=== PATIENT | male | born 1950 | race Hispanic/Latino ===

== ENCOUNTER 2024-11-30 15:41 | Inpatient (IN) | payer MEDICARE ==
[~2024-11-30] VITALS: Ht 170.2 cm; Wt 79.1 kg
--- NOTE | 2024-11-30 16:09 | ERN ---
ED Note History of Present Illness Stated Complaint: DIARRHEA Chief Complaint: Diarrhea Time Seen by MD: 15:48 Dictation: PATIENT IS A 74-YEAR-OLD MALE COMING IN VIA EMS WITH COMPLAINTS OF GENERALIZED BODY WEAKNESS WITH DIARRHEA ONSET WAS YESTERDAY. HE DENIES FEVER CHILLS NO CHEST PAIN NO BACK PAIN. NO CHANGE IN URINATION. STATES HIS LAST INTAKE WAS YESTERDAY HE HAS HAD NO FOOD OR DRINK SINCE YESTERDAY. DENIES ANY RECENT ANTIBIOTIC USE Allergies: Coded Allergies: No Known Drug Allergies (Unverified Allergy, Unknown, 11/30/24) Past Medical History Past Medical History: Anxiety, CVA, Depression, Hypertension, Other Additional Past Medical Hx: BPH, Surgical History: None RN Note Reviewed/Agreed w/PFSH: Yes Review of System Dictation CONSTITUTIONAL: NEGATIVE EXCEPT FOR HPI G BW HEAD/FACE: NEGATIVE EXCEPT FOR HPI EENT: NEGATIVE EXCEPT FOR HPI RESPIRATORY: NEGATIVE EXCEPT FOR HPI GASTROINTESTINAL/ABDOMINAL: NEGATIVE EXCEPT FOR HPI DIARRHEA, DENIES PAIN GENITOURINARY: NEGATIVE EXCEPT FOR HPI MUSCULOSKELETAL: NEGATIVE EXCEPT FOR HPI INTEGUMENTARY: NEGATIVE EXCEPT FOR HPI NEUROLOGICAL/PSYCH: NEGATIVE EXCEPT FOR HPI HEMATOLOGIC/LYMPHATIC: NEGATIVE EXCEPT FOR HPI ALL SYSTEMS NEGATIVE, EXCEPT NOTED ABOVE. 13 POINT REVIEW OF SYSTEMS ASSESSED AND ALL NEGATIVE EXCEPT FOR ABOVE. Initial Vital Sign VS Vital Signs Date Time Temp Pulse Resp B/P (MAP) Pulse Ox O2 Delivery O2 Flow Rate FiO2 11/30/24 15:42 68 16 147/82 95 Room Air 0 11/30/24 16:01 97.9 21 Physical Exam Dictation VITAL SIGNS REVIEWED GENERAL APPEARANCE: ALERT, ORIENTED X 3, PATIENT APPEARS VERY FRAIL AND DEBILITATED. NO COMPLAINTS OF PAIN AT THIS TIME. HEAD AND FACE: NON-TRAUMATIC. EYES: PERRL, PINK CONJUNCTIVAS, EYELID NO TRAUMA, ANTERIOR CHAMBER WITH ARCUS SENILIS. EARS: PINNAS INTACT AND NO SIGNS OF TRAUMA OR ERYTHEMA EAR CANALS CLEAR AND NO DISCHARGE TM NO ERYTHEMA NOSE: NO DISCHARGE, NO BLEEDING. OROPHARYNX: MOUTH NORMAL, TONGUE PINK, PHARYNX CLEAR,NO ERYTHEMA, TONSILS NO EXUDATES, NO ABSCESSES NOTED, MUCOUS MEMBRANE MOIST NECK: SUPPLE, NON-TENDER, NO THYROMEGALY, NO MASSES, NO JVD, NO BRUITS BREAST:DEFERRED CHEST:NO TENDERNESS, NO CREPITUS, NO PARADOXICAL MOVEMENT, NO RETRACTIONS LUNGS:CLEAR, WELL-VENTILATED, SYMMETRIC, NO RALES, NO WHEEZING, NO RHONCHI, NO STRIDOR, GOOD BREATH SOUNDS BILATERALLY HEART: REGULAR RATE, REGULAR RHYTHM, NO MURMUR, NO GALLOPS VASCULAR: NO PERIPHERAL EDEMA, ABDOMEN: SOFT, POSITIVE BOWEL SOUNDS, NONDISTENDED, NO GUARDING, NONTENDER, NO REBOUND, NO MASSES NO HEPATOMEGALY, NO SPLENOMEGALY, NO TOLEDO'S SIGN, NO HERNIAS. NO FOCAL PAIN ON EXAM RECTAL: DEFERRED GENITAL: DEFERRED NEUROLOGICAL: NORMAL SPEECH, MOTOR FUNCTION INTACT, SENSORY FUNCTION INTACT 4/+5 STRENGTH ALL EXTREMITIES MUSCULOSKELETAL: NECK NONTENDER, FULL RANGE OF MOTION, BACK NONTENDER, FULL RANGE OF MOTION, EXTREMITIES: NONTENDER, FULL RANGE OF MOTION SKIN: COLOR PINK, DRY, NO TURGOR, NO RASH, NO LACERATIONS, NO ABRASIONS, NO CONTUSIONS. LYMPHATIC: DEFERRED Results (Laboratory/Radiology) Laboratory/Radiology Laboratory Tests Test 11/30/24 16:22 11/30/24 17:56 White Blood Count 7.6 K/uL (4.8-10.8) Red Blood Count 4.66 MIL/uL (4.50-6.20) Hemoglobin 14.5 g/dL (14.0-18.0) Hematocrit 43.6 % (42-54) Mean Corpuscular Volume 93.6 fL (79-99) Mean Corpuscular Hemoglobin 31.1 pg (27.0-33.0) Mean Corpuscular Hemoglobin Concent 33.3 g/dL (32.0-36.0) Red Cell Distribution Width 13.6 % (11.0-15.5) Platelet Count 222 K/uL (130-400) Mean Platelet Volume 11.5 fL (7.5-10.5) H Immature Granulocyte % (Auto) 0.3 % (0-1) Neutrophils (%) (Auto) 70.7 % (40.0-77.0) Lymphocytes (%) (Auto) 18.8 % (21.0-51.0) L Monocytes (%) (Auto) 5.8 % (3.0-13.0) Eosinophils (%) (Auto) 3.7 % (0.0-8.0) Basophils (%) (Auto) 0.7 % (0.0-5.0) Neutrophils # (Auto) 5.4 K/uL (1.8-7.7) Lymphocytes # (Auto) 1.4 K/uL (1.0-4.8) Monocytes # (Auto) 0.4 K/uL (0.1-1.0) Eosinophils # (Auto) 0.28 K/uL (0.00-0.70) Basophils # (Auto) 0.05 K/uL (0.00-0.20) Absolute Immature Granulocyte (auto 0.02 K/uL (0-1) Nucleated Red Blood Cells 0.0 % (0.0-0.19) Sodium Level 140 mmol/L (136-145) Potassium Level 4.5 mmol/L (3.5-5.1) Chloride Level 106 mmol/L (101-111) Carbon Dioxide Level 28 mmol/L (21-32) Blood Urea Nitrogen 24 mg/dL (7-18) H Creatinine 1.4 mg/dL (0.5-1.3) H Glomerular Filtration Rate Calc 52 mL/min (>90) Random Glucose 98 mg/dL (70-105) Total Calcium 8.6 mg/dL (8.5-10.1) Troponin I High Sensitivity 6 ng/L (4-75) Lipase 31 U/L (16-77) Urine Color LIGHT-YELLOW (YELLOW) Urine Appearance CLEAR (CLEAR) Urine pH 5.5 (5.0-8.0) Urine Specific [place] 1.023 (1.001-1.031) Urine Protein NEGATIVE mg/dL (NEGATIVE) Urine Glucose (UA) NEGATIVE mg/dL (NEGATIVE) Urine Ketones NEGATIVE mg/dL (NEGATIVE) Urine Occult Blood +- (TRACE) (NEGATIVE) H Urine Nitrate NEGATIVE (NEGATIVE) Urine Bilirubin NEGATIVE mg/dL (NEGATIVE) Urine Urobilinogen 0.2 mg/dL (0.2-1.0) Urine Leukocyte Esterase NEGATIVE [place]/uL Urine RBC 2-5 /HPF (0-1) H Urine WBC 0-1 /HPF (0-1) Urine Squamous Epithelial Cells RARE /HPF (0-2) Urine Bacteria None /HPF (None Seen) Labs Reviewed?: Yes EKG Comment: EKG SINUS RHYTHM/HEART RATE 65/AXIS NORMAL/0 CHANGES IN INFERIOR ANTERIOR LEADS ED Course ED Course Orders Procedure Category Date Status Time Cbc With Differential LAB 11/30/24 Complete 16:04 Troponin I High LAB 11/30/24 Complete Sensitivity 16:04 Urinalysis Profile LAB 11/30/24 Complete 16:04 12 Lead Ekg Tracing- EKG 11/30/24 Logged Technical 16:04 0.9%Nacl 1000ml (Ns PHA 11/30/24 In Process 1000ml) 16:30 Stool Culture MELITON 11/30/24 In Process 16:04 Lipase LAB 11/30/24 Complete 16:04 Basic Metabolic Panel LAB 11/30/24 Complete 16:04 Edm Admit Bridge Order ADM 11/30/24 Verified 18:57 Current Medications Medications (Trade) Dose Ordered Sig/[place] Route PRN Reason Start Time Stop Time Status Last Admin Dose Admin Sodium Chloride 1,000 ml @ 0 mls/hr ONCE IV 11/30/24 16:30 11/30/24 20:30 11/30/24 16:10 Vital Signs Date Time Temp Pulse Resp B/P (MAP) Pulse Ox O2 Delivery O2 Flow Rate FiO2 11/30/24 18:09 98.4 68 16 131/60 97 Room Air* 0 21 11/30/24 17:28 97.9 88 13 163/83 96 Room Air* 0 21 11/30/24 16:01 97.9 65 18 126/72 97 Room Air* 0 11/30/24 15:42 68 16 147/82 95 Room Air 0 1850/WITH PATIENT AT LENGTH ABOUT CLINICAL FINDINGS AND LABS. HE STATES HE DOES NOT FEEL LIKE HE COULD GO HOME AND BE SAFE HE WOULD LIKE TO STAY AND BE REHYDRATED AND ADDRESS THE JC. I AGREED I WOULD ADMIT HIM. HE STATES HE DOES FEEL BETTER AT THIS TIME.1900/ SPOKE WITH TOMA WILSON [facility] H[facility]PITAL[facility] REVIEWED EKG LABS INTERVENTIONS FOR JC AND DEHYDRATION HE IS ALSO AWARE PENDING A COLLECTION OF STOOL FOR CULTURE Medical Decision Making MDM MDM: DIFFERENTIAL DIAGNOSIS: C DIFF/INFECTIOUS DIARRHEA/ELECTROLYTE IMB ALANCE/DEHYDRATION/ACS/AMI/JC RATIONALE: TESTS CONSIDERED AND ORDERED SECONDARY TO SHARED DECISION MAKING INCLUDE: LABS, ECG PREVIOUS OUTSIDE RECORDS REVIEWED: OLD ER VISITS. RISK OF COMPLICATION AND/OR MORBIDITY OR MORTALITY OF PATIENT MANAGEMENT: MODERATE MEDICATIONS-PER MEDICATION RECONCILIATION NEED FOR HOSPITALIZATION: PATIENT DOES MEET CRITERIA FOR HOSPITALIZATION. FLUIDS NEED FOR EMERGENCY MAJOR/MINOR SURGERY: NO THERE ARE NO SOCIAL CONCERNS WITH THIS PATIENT. PRESCRIPTION DRUG MANAGEMENT PRESCRIPTIONS WILL INCLUDE SYMPTOMATIC CARE PATIENT'S PRIOR EXTERNAL MEDICAL RECORDS FROM OTHER ER VISITS WERE REVIEWED BY ME INDICATED. PRIOR TESTING AND RESULTS FROM PREVIOUS VISITS WERE REVIEWED. PRIOR TESTS WERE TAKEN INTO ACCOUNT WITH MEDICAL DECISION MAKING AND RESOURCE UTILIZATION, INDEPENDENT HISTORIAN/HISTORIANS WERE USED TO OBTAIN COMPLETE MEDICAL HISTORY. I INDEPENDENTLY INTERPRETED THE TEST THAT WERE PERFORMED, RESULTS WERE REVIEWED BY ME AND CONSIDERED FINDINGS ON RADIOLOGY IF ORDERED. MEDICAL MANAGEMENT AND EXAMINATION INTERPRETATION DISCUSSIONS WERE HAD BY ME WITH OTHER QUALIFIED HEALTHCARE PROFESSIONALS INDICATED FOR THE PATIENT'S CARE. DX & DISP Disposition: Inpatient Decision to Admit Time: 18:53 Departure Impression: Primary Impression: Diarrhea Additional Impressions: Acute kidney injury, Dehydration Condition: Stable Referrals: SELF,REFERRAL (PCP) Time of Disposition: 18:53 I have reviewed the case, and I agree with, Diagnosis and Plan KAYDEN JOHNSTON [employer] Nov 30, 2024 16:09
[2024-11-30] MEDS: 0.9%NACL 1000ML 1,000 ML IV SCH (16:10)
[2024-11-30 16:40] LABS: IMMATURE GRANULOCYTE ABSOLUTE 0.02 K/uL (0-1); NUCLEATED RED BLOOD CELLS 0.0 % (0.0-0.19); PLATELET COUNT (AUTO) 222 K/uL (130-400); RED BLOOD CELL COUNT(AUTO) 4.66 MIL/uL (4.50-6.20); RED CELL DISTRIBUTION WIDTH 13.6 % (11.0-15.5); WHITE BLOOD COUNT (AUTO) 7.6 K/uL (4.8-10.8)
[2024-11-30 16:50] LABS: CREATININE 1.4 mg/dL (0.5-1.3); GLOMERULAR FILTR. RATE CALC 52.0 mL/min (>90); GLUCOSE,RANDOM 98.0 mg/dL (70-105); SODIUM SERUM 140.0 mmol/L (136-145); UREA NITROGEN, BLOOD 24.0 mg/dL (7-18)
--- NOTE | 2024-11-30 18:05 | NUR ---
CALL DAUGHTER IWONA ITZEL (BANNER) *[phone]
[2024-11-30 18:14] LABS: APPEARANCE,URINE CLEAR (CLEAR); GLUCOSE, URINE (UA) NEGATIVE (NEGATIVE); LEUKOCYTE ESTERASE ,URINE NEGATIVE Leu/uL (NEGATIVE); NITRATE,URINE NEGATIVE (NEGATIVE); OCCULT BLOOD,URINE +- (TRACE) (NEGATIVE)
[2024-11-30 18:15] LABS: ADD UA MICROSCOPIC YES
[2024-11-30 18:17] LABS: SQUAMOUS EPITHELIAL CELL,UR RARE /HPF (0-2)
--- NOTE | 2024-11-30 19:03 | HP ---
History of Present Illness Reason for Visit: weakness History of Present Illness Mr. Silva is a 74-year-old male that was seen and examined today on 11/30/2024. Patient is a good historian of personal health Patient reports that he came to the emergency department with a chief complaint of diarrhea. Onset was today. Location is rectal. Duration is on and off. Character is described as watery. There was no alleviating factors. Symptoms are aggravated by defecation. Patient reports associated weakness. Today in the emergency department CBC unremarkable, urinalysis unremarkable, creatinine 1.4, BUN 24. Emergency room physician recommended patient be admitted with a diagnosis of acute kidney injury. Past Medical History ADDITIONAL PAST MEDICAL HISTORY: [] SOCIAL HISTORY: [] SURGICAL HISTORY: [] Review of Systems General: No Fever, No Chills, No Night Sweats, No Fatigue, No Malaise, No Appetite, No Other HEENT: No Head Aches, No Visual Changes, No Eye Pain, No Ear Pain, No Dysphasia, No Sinus Congestion, No Post Nasal Drip, No Sore Throat, No Other Pulmonary: No Dyspnea, No Cough, No Pleuritic Chest Pain, No Other Cardiovascular: No: Chest Pain, Palpitations, Orthopnea, Paroxysmal Noc. Dyspnea, Edema, Lt Headedness, Other Gastrointestinal: Diarrhea; No: Nausea, Vomiting, Abdominal Pain, Constipation, Melena, Hematochezia, Other Genitourinary: No Dysuria, No Frequency, No Incontinence, No Hematuria, No Retention, No Other Musculoskeletal: No: other, neck pain, shoulder pain, arm pain, back pain, hand pain, leg pain, foot pain Skin: No Urticaria, No Rash, No Other Neurological: Weakness; No: Numbness, Incoordination, Change in speech, Confusion, Seizures, Other Allergies: Coded Allergies: No Known Drug Allergies (Unverified Allergy, Unknown, 11/30/24) Exam Vital Signs Vital Signs Date Time Temp Pulse Resp B/P (MAP) Pulse Ox O2 Delivery O2 Flow Rate FiO2 11/30/24 18:09 98.4 68 16 131/60 97 Room Air* 0 21 General Appearance: Alert, Oriented X3, Cooperative, No acute distress HEENT: Atraumatic, EOMI, Mucous membr. moist/pink Respiratory: Clear to auscultation, Normal air movement, NL respiratory effort Cardiovascular: Regular rate, Regular rhythm, Normal S1, Normal S2 Abdominal: Normal bowel sounds, Soft, No tenderness Extremities: No edema Skin: No significant lesion Neuro: Normal speech, Strength at 5/5 X4 ext, Sensation intact, Cranial nerves 3-12 NL Psych/Mental Status: Mental status NL, Mood NL, Thoughts/Content NL Assessment/Plan ASSESSMENT: [ Acute kidney injury, POA Anxiety Depression Hypertension History of CVA PLAN: [ Patient admit patient to medical floor as inpatient status. Place patient on telemetry monitoring. Acute kidney injury: LR at 75 ml/hr Calculate FENA Check urine sodium, creatinine, osmolality Avoid nephrotoxic agents when possible Renally dose all medications when possible Consider consulting Nephrology service if any worsening renal function or evidence of ATN. Monitor patient's labs. Weight patient daily. Monitor intake and output. Hypertension, depression, anxiety: Consider resuming home medications once they have been reconciled. At time of admission home medications have been reconciled. For now: Hydralazine 10 mg IV every 4 hours for systolic blood pressure greater than 160 mmHg GI prophylaxis, famotidine DVT prophylaxis, heparin ADVANCED CARE PLANNING 1. Which of the following were discussed? Hospice Care - Yes Therapeutic options - yes Advance Directives - Yes - patient states he does not have any advance directives in place at this time. Patient states his , Vero can make decisions for him if he becomes unable. Other discussions - patient wishes to remain a full code 2. Discussed with who? Patient 3. Voluntary nature of this service was explained to the patient? Yes 4. Amount of time spent - ___16 minutes____ 5. Reviewed by Physician? (if this service was performed by NPP) Yes This document was generated in part using voice recognition software, occasional wrong word or sound alike substitutions may have occurred due to the inherent limitations of voice recognition software. Read the chart carefully and recognize using context, where the substitutions have occurred. Although every effort was made to edit the content, flower shop manager and typing errors may occur ATTESTATION BY PHYSICIAN I have seen and examined the patient. I reviewed the documentation, medical decision making, and treatment plan as noted by the mid-level provider above. I agree with the findings and plan of care. ] TOMA WILSON [facility] Nov 30, 2024 19:03
[2024-11-30] MEDS: LACTATED RINGERS 1000ML 1,000 ML IV SCH (19:19)
[2024-11-30 20:26] LABS: CREATININE,URINE RANDOM 138.09 mg/dL (30-135)
[2024-11-30 21:52] VITALS: BP 150/69; PULSE 83; RESP 12; TEMP 98.6
[2024-11-30 22:20] VITALS: BP 154/91; PULSE 80; RESP 18; TEMP 98
[2024-11-30 23:00] VITALS: O2SAT 94
[2024-12-01] VITALS (7 sets, daily range): BP systolic 140–172; BP diastolic 84–95; PULSE 70–76; RESP 16–18; TEMP 97.4–98.1; O2SAT 96–97
[2024-12-01 05:11] LABS: IMMATURE GRANULOCYTE ABSOLUTE 0.03 K/uL (0-1); NUCLEATED RED BLOOD CELLS 0.0 % (0.0-0.19); PLATELET COUNT (AUTO) 202 K/uL (130-400); RED BLOOD CELL COUNT(AUTO) 4.31 MIL/uL (4.50-6.20); RED CELL DISTRIBUTION WIDTH 13.3 % (11.0-15.5); WHITE BLOOD COUNT (AUTO) 9.1 K/uL (4.8-10.8)
[2024-12-01 05:34] LABS: CREATININE 1.2 mg/dL (0.5-1.3); GLOMERULAR FILTR. RATE CALC 63.0 mL/min (>90); GLUCOSE,RANDOM 98.0 mg/dL (70-105); PHOSPHORUS 2.1 mg/dL (2.5-4.9); SODIUM SERUM 139.0 mmol/L (136-145); UREA NITROGEN, BLOOD 21.0 mg/dL (7-18)
[2024-12-01] MEDS: MAGNESIUM 2GM PREMIX 50ML 50 ML IV SCH (07:20)
--- NOTE | 2024-12-01 08:24 | EKG ---
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
[2024-12-01 09:26] LABS: COVID19 (SARS ANTIGEN RAPID) PRESUMPTIVE NEGATIVE (NEGATIVE); INFLUENZA TYPE A Negative For Type A (NEGATIVE); INFLUENZA TYPE B Negative For Type B (NEGATIVE)
--- NOTE | 2024-12-01 10:28 | PN ---
[facility] PROGRESS NOTE Date of Service: Dec 01, 2024 Time of Service: 10:[address] Whaley SUBJECTIVE: [11/30 Mr. Silva is a 74-year-old male that was seen and examined today on 11/30/2024. Patient is a good historian of personal health Patient reports that he came to the emergency department with a chief complaint of diarrhea. Onset was today. Location is rectal. Duration is on and off. Character is described as watery. There was no alleviating factors. Symptoms are aggravated by defecation. Patient reports associated weakness. Today in the emergency department CBC unremarkable, urinalysis unremarkable, creatinine 1.4, BUN 24. Emergency room physician recommended patient be admitted with a diagnosis of acute kidney injury. 12/01 patient was seen by nurse practitioner and physician during rounding in room 410. Patient's creatinine has improved today is 1.2 BUN 21 GFR 63. Magnesium 1.5 we will be replaced per protocol. Patient was complaining of diarrhea on previous day stool PCR was ordered. Continue LR at 75 mL/hour. Pantoprazole and heparin subQ. We will continue to monitor patient in the meantime. A.m. labs. Anticipated discharge within 24 hours.] REVIEW OF SYSTEMS CONSTITUTIONAL: Denies fevers, chills, or night sweats. No unintentional weight loss reported. NEUROLOGICAL: Denies headache, amaurosis fugax, motor weakness, sensory deficit, vertigo/spinning sensation, gait abnormalities, or tremors. ENT: No hearing loss, otalgia, otorrhea, rhinitis, rhinorrhea, hoarseness, or sore throat. CARDIOVASCULAR: Denies any exertional angina, dyspnea on exertion, orthopnea, paroxysmal nocturnal dyspnea, palpitations, life-threatening arrhythmias, claudication. PULMONARY: Denies any shortness of breath, cough, phlegm/sputum, hemoptysis, pleuritic chest pain. SLEEP: Denies morning headaches, daytime somnolence or napping. Denies difficulty falling asleep, staying asleep, waking from sleep. Denies knowledge of snoring. GASTROINTESTINAL: Denies any type of dysphagia to either liquids or solids. Denies nausea, vomiting, pyrosis, early satiety, diarrhea, constipation, or changes in stool consistency or caliber. Denies coffee-ground emesis, hematemesis, hematochezia, or melanotic stools. Severe abdominal pain GENITOURINARY: Denies frequency, urgency, nocturia, hematuria or incontinence (Storage/Irritative symptoms.) Low urinary stream, straining to void, urinary intermittency or hesitancy, splitting of the voiding stream, terminal dribbling. ENDOCRINOLOGIC: Denies polyuria, polydipsia, polyphagia or heat/cold intolerances. HEMATOLOGIC: Denies thrombophilia/previous clots, or coagulopathy/bleeding disorders. ONCOLOGIC: Denies personal history of malignancy. DERMATOLOGIC: Denies rashes or pruritus. PSYCHIATRIC: Denies any suicidal or homicidal ideation. Denies hallucinations. PHYSICAL EXAM GENERAL APPEARANCE: The patient is awake, alert, and oriented, in no acute cardiopulmonary distress. NEUROLOGICAL: Cranial nerves II-XII grossly intact. Motor is 5/5 in bilateral upper and lower extremities proximal to distal. No sensory deficits. HEENT: Face is symmetric. Pupils are equal and reactive. Extraocular movements are intact. NECK: Supple. No JVD. No thyromegaly. No submental, submandibular, pre- /postauricular, occipital or supraclavicular lymphadenopathy. CHEST: Normal chest expansion. No Telemetry. LUNGS: Absence of any rales, rhonchi or any wheezing. CARDIOVASCULAR: Regular. S1 and S2 normal. No appreciable rubs, murmurs or gallops. ABDOMEN: Soft, nontender, and nondistended. There is no rebound, voluntary guarding, or rigidity. : Deferred. No Jacobson. EXTREMITIES: Non-edematous and not cyanotic. No clubbing. Good capillary refill. SKIN: No skin breakdown. Vital Signs (last 8hr) Date Time Temp Pulse Resp B/P (MAP) Pulse Ox O2 Delivery O2 Flow Rate FiO2 12/01/24 08: 97.9 73 18 140/90 97 Room Air 12/01/24 05:06 97.3 76 18 156/89 94 Room Air LABS: Laboratory: Test 12/01/24 08:45 12/01/24 04:51 11/30/24 17:56 11/30/24 16:22 Range/Units Influenza Type A Antigen Negative For Type A NEGATIVE Influenza Type B Antigen Negative For Type B NEGATIVE SARS-CoV-2 Antigen (Rapid) PRESUMPTIVE NEGATIVE NEGATIVE White Blood Count 9.1 4.8-10.8 K/uL Red Blood Count 4.31 L 4.50-6.20 MIL/uL Hemoglobin 13.3 L 14.0-18.0 g/dL Hematocrit 39.8 L 42-54 % Mean Corpuscular Volume 92.3 79-99 fL Mean Corpuscular Hemoglobin 30.9 27.0-33.0 pg Mean Corpuscular Hemoglobin Concent 33.4 32.0-36.0 g/dL Red Cell Distribution Width 13.3 11.0-15.5 % Platelet Count 202 130-400 K/uL Mean Platelet Volume 11.4 H 7.5-10.5 fL Immature Granulocyte % (Auto) 0.3 0-1 % Neutrophils (%) (Auto) 77.0 40.0-77.0 % Lymphocytes (%) (Auto) 12.5 L 21.0-51.0 % Monocytes (%) (Auto) 4.9 3.0-13.0 % Eosinophils (%) (Auto) 5.0 0.0-8.0 % Basophils (%) (Auto) 0.3 0.0-5.0 % Neutrophils # (Auto) 7.0 1.8-7.7 K/uL Lymphocytes # (Auto) 1.1 1.0-4.8 K/uL Monocytes # (Auto) 0.4 0.1-1.0 K/uL Eosinophils # (Auto) 0.45 0.00-0.70 K/uL Basophils # (Auto) 0.03 0.00-0.20 K/uL Absolute Immature Granulocyte (auto 0.03 0-1 K/uL Nucleated Red Blood Cells 0.0 0.0-0.19 % Sodium Level 139 136-145 mmol/L Potassium Level 4.1 3.5-5.1 mmol/L Chloride Level 105 101-111 mmol/L Carbon Dioxide Level 23 21-32 mmol/L Blood Urea Nitrogen 21 H 7-18 mg/dL Creatinine 1.2 0.5-1.3 mg/dL Glomerular Filtration Rate Calc 63 >90 mL/min Random Glucose 98 70-105 mg/dL Total Calcium 8.2 L 8.5-10.1 mg/dL Phosphorus Level 2.1 L 2.5-4.9 mg/dL Magnesium Level 1.50 L 1.80-2.40 mg/dL Urine Color LIGHT-YELLOW YELLOW Urine Appearance CLEAR CLEAR Urine pH 5.5 5.0-8.0 Urine Specific [place] 1.023 1.001-1.031 Urine Protein NEGATIVE NEGATIVE mg/dL Urine Glucose (UA) NEGATIVE NEGATIVE mg/dL Urine Ketones NEGATIVE NEGATIVE mg/dL Urine Occult Blood +- (TRACE) H NEGATIVE Urine Nitrate NEGATIVE NEGATIVE Urine Bilirubin NEGATIVE NEGATIVE mg/dL Urine Urobilinogen 0.2 0.2-1.0 mg/dL Urine Leukocyte Esterase NEGATIVE NEGATIVE [place]/uL Urine RBC 2-5 H 0-1 /HPF Urine WBC 0-1 0-1 /HPF Urine Squamous Epithelial Cells RARE 0-2 /HPF Urine Bacteria None None Seen /HPF Urine Random Creatinine 138.09 H 30-135 mg/dL Urine Random Sodium 195 40-220 mmol/l Troponin I High Sensitivity 6 4-75 ng/L Lipase 31 16-77 U/L Current Medications Medications (Trade) Dose Ordered Sig/[place] Route PRN Reason Start Time Stop Time Status Last Admin Dose Admin Acetaminophen (TYLenol 325MG TAB) 650 mg Q6H PRN PO TEMPERATURE GREATER THAN 101.5 11/30/24 19:00 12/30/24 18:59 Heparin Sodium (Porcine) (HEParin 5,000 UNIT VIAL) 5,000 unit BID SQ 11/30/24 21:00 12/30/24 20:59 12/01/24 08:52 5,000 UNIT Hydralazine HCl (APRESOLine 20MG INJ) 10 mg Q6H PRN IV For:SBP above 160;DBP above 90 11/30/24 19:00 12/30/24 18:59 Lactated Ringer's 1,000 ml @ 75 mls/hr [id number] IV 11/30/24 19:00 12/30/24 18:59 11/30/24 19:19 75 MLS/HR Magnesium Sulfate 50 ml @ 0 mls/hr PROTOCOL IV 12/01/24 07:00 12/31/24 06:59 12/01/24 07:20 25 MLS/HR Morphine Sulfate (morPHINE 2MG SYG) 2 mg Q4H PRN IVP SEVERE PAIN (7-10) 12/01/24 07:00 12/07/24 18:59 Morphine Sulfate (morPHINE 4MG SYG) 2 mg Q4H PRN IVP SEVERE PAIN (7-10) 11/30/24 19:00 12/01/24 06:48 DC Ondansetron HCl (zoFRAN 4MG INJ) 4 mg Q6H PRN IV NAUSEA/VOMITING 11/30/24 19:00 12/30/24 18:59 12/01/24 07:19 4 MG Pantoprazole Sodium (PROTonix 40MG TAB) 40 mg ACBKFST PO 12/01/24 07:30 12/31/24 07:29 12/01/24 07:19 40 MG Sodium Chloride 1,000 ml @ 0 mls/hr ONCE IV 11/30/24 16:30 11/30/24 20:30 DC 11/30/24 16:10 1,000 MLS/HR DIAGNOSTICS / RADIOLOGY: [ ] ASSESSMENT: [ Acute kidney injury, POA Severe abdominal pain POA Severe diarrhea POA Anxiety Depression Hypertension History of CVA ] PLAN: [ Continue in medical floor as inpatient status. Continue telemetry monitoring. CT abdomen/pelvis pending Stool PCR pending Acute kidney injury: LR at 75 ml/hr Check urine sodium, creatinine, osmolality Avoid nephrotoxic agents when possible Renally dose all medications when possible Consider consulting Nephrology service if any worsening renal function or evidence of ATN. Monitor patient's labs. Weight patient daily. Monitor intake and output. Hypertension, depression, anxiety: Consider resuming home medications once they have been reconciled. At time of admission home medications have been reconciled. For now: Hydralazine 10 mg IV every 4 hours for systolic blood pressure greater than 160 mmHg GI prophylaxis, famotidine DVT prophylaxis, heparin] ATTESTATION BY PHYSICIAN I have seen and examined the patient. I reviewed the documentation, medical decision making, and treatment plan as noted by the mid-level provider above. I agree with the findings and plan of care. NICOLÁS Ricks MD MANAGER CLINICAL RESEARCH Dec 01, 2024 10:28
--- NOTE | 2024-12-01 19:04 | HMCIMG ---
CLINICAL INFORMATION Severe abdominal pain COMPARISON None. TECHNIQUE Volumetric helical CT images of the abdomen and pelvis without contrast FINDINGS Liver: Normal. Gallbladder: No calcified gallstones or sludge. No wall thickening. Biliary System: Non-dilated. Pancreas: Normal. Spleen: Normal. Adrenals: Normal. Kidneys: Punctate nonobstructing nephrolith in the superior pole right kidney. No hydronephrosis. Ureters: Normal. Bladder: Dependent hyperdensity suggesting sediment. Pelvis: No pelvic masses. No abnormal pelvic fluid. Stomach: Small hiatal hernia. Duodenum: Normal. Small Bowel: Normal. Colon: Scattered colonic diverticula. No inflammation. Appendix: Normal. Lymph Nodes: No lymphadenopathy. Peritoneum: No ascites or free air. Retroperitoneum: Normal. Vessels: Atelectatic vascular calcifications of the abdominal aorta, with infrarenal ectasia measuring up to 2.9 cm. Abdominal Wall: Fat-containing umbilical hernia. Bones: Bilateral L5 pars interarticularis defects with grade 1 anterolisthesis and severe bilateral neural foraminal stenosis at this level. Lung Bases: Mild basilar reticulation. Inferior Mediastinum: Coronary arterial calcification. IMPRESSION No acute intra-abdominal findings. Punctate nonobstructing nephrolith in the superior pole right kidney, with calcified sediment in the bladder lumen. Small hiatal hernia. Colonic diverticulosis without evidence of diverticulitis. Bilateral L5 pars interarticularis defects with grade 1 anterolisthesis and severe bilateral neural foraminal stenosis at this level. /[place]
[2024-12-02] VITALS (8 sets, daily range): BP systolic 146–169; BP diastolic 85–93; PULSE 69–79; RESP 16–20; TEMP 97.6–98; O2SAT 93–97
[2024-12-02 05:22] LABS: IMMATURE GRANULOCYTE ABSOLUTE 0.02 K/uL (0-1); NUCLEATED RED BLOOD CELLS 0.0 % (0.0-0.19); PLATELET COUNT (AUTO) 212 K/uL (130-400); RED BLOOD CELL COUNT(AUTO) 4.52 MIL/uL (4.50-6.20); RED CELL DISTRIBUTION WIDTH 13.6 % (11.0-15.5); WHITE BLOOD COUNT (AUTO) 8.7 K/uL (4.8-10.8)
[2024-12-02 05:36] LABS: ASPARTATE AMINOTRANSFERASE 17.0 U/L (10-37); CREATININE 1.3 mg/dL (0.5-1.3); GLOMERULAR FILTR. RATE CALC 57.0 mL/min (>90); GLUCOSE,RANDOM 97.0 mg/dL (70-105); SODIUM SERUM 138.0 mmol/L (136-145); TOTAL PROTEIN, SERUM 6.3 g/dL (6.0-8.3); UREA NITROGEN, BLOOD 16.0 mg/dL (7-18)
--- NOTE | 2024-12-02 09:14 | NUR ---
DCP: RETURN TO [facility] met with pt who states he and vishal have lived a [facility] in the [facility]isted Living Unit for several months. Staff assists pt with ADLS, home management and meals. Pt denies need for DME at this time, able to ambulate on his owns, no HH or HD. PCP is Fabiano Peter and uses [facility] for medications. SANJAY ornelas transports pt to MD appts. Pt will return to [facility] at [place], by [facility]. Daughter Annel Silva [phone]. Addendum: 12/02/24 at 0919 by PAULA BANEGAS Amended: Links added.
--- NOTE | 2024-12-02 12:59 | PN ---
[facility] PROGRESS NOTE Date of Service: Dec 02, 2024 Time of Service: 12:58 SUBJECTIVE: [11/30 Mr. Silva is a 74-year-old male that was seen and examined today on 11/30/2024. Patient is a good historian of personal health Patient reports that he came to the emergency department with a chief complaint of diarrhea. Onset was today. Location is rectal. Duration is on and off. Character is described as watery. There was no alleviating factors. Symptoms are aggravated by defecation. Patient reports associated weakness. Today in the emergency department CBC unremarkable, urinalysis unremarkable, creatinine 1.4, BUN 24. Emergency room physician recommended patient be admitted with a diagnosis of acute kidney injury. 12/01 patient was seen by nurse practitioner and physician during rounding in room 410. Patient's creatinine has improved today is 1.2 BUN 21 GFR 63. Magnesium 1.5 we will be replaced per protocol. Patient was complaining of diarrhea on previous day stool PCR was ordered. Continue LR at 75 mL/hour. Pantoprazole and heparin subQ. We will continue to monitor patient in the meantime. A.m. labs. Anticipated discharge within 24 hours.] 12/02 patient remains admitted to the medical floor, blood pressure 146/85, afebrile, saturating normal on room air, hemoglobin stable 14.1, hematocrit 41.9. Renal function back to normal to 1.3. Results of stool cultures negative. Patient on IV fluids. Possible home today. REVIEW OF SYSTEMS CONSTITUTIONAL: Denies fevers, chills, or night sweats. No unintentional weight loss reported. NEUROLOGICAL: Denies headache, amaurosis fugax, motor weakness, sensory deficit, vertigo/spinning sensation, gait abnormalities, or tremors. ENT: No hearing loss, otalgia, otorrhea, rhinitis, rhinorrhea, hoarseness, or sore throat. CARDIOVASCULAR: Denies any exertional angina, dyspnea on exertion, orthopnea, paroxysmal nocturnal dyspnea, palpitations, life-threatening arrhythmias, claudication. PULMONARY: Denies any shortness of breath, cough, phlegm/sputum, hemoptysis, pleuritic chest pain. SLEEP: Denies morning headaches, daytime somnolence or napping. Denies difficulty falling asleep, staying asleep, waking from sleep. Denies knowledge of snoring. GASTROINTESTINAL: Denies any type of dysphagia to either liquids or solids. Denies nausea, vomiting, pyrosis, early satiety, diarrhea, constipation, or changes in stool consistency or caliber. Denies coffee-ground emesis, hematemesis, hematochezia, or melanotic stools. Severe abdominal pain GENITOURINARY: Denies frequency, urgency, nocturia, hematuria or incontinence (Storage/Irritative symptoms.) Low urinary stream, straining to void, urinary intermittency or hesitancy, splitting of the voiding stream, terminal dribbling. ENDOCRINOLOGIC: Denies polyuria, polydipsia, polyphagia or heat/cold intolerances. HEMATOLOGIC: Denies thrombophilia/previous clots, or coagulopathy/bleeding disorders. ONCOLOGIC: Denies personal history of malignancy. DERMATOLOGIC: Denies rashes or pruritus. PSYCHIATRIC: Denies any suicidal or homicidal ideation. Denies hallucinations. PHYSICAL EXAM GENERAL APPEARANCE: The patient is awake, alert, and oriented, in no acute cardiopulmonary distress. NEUROLOGICAL: Cranial nerves II-XII grossly intact. Motor is 5/5 in bilateral upper and lower extremities proximal to distal. No sensory deficits. HEENT: Face is symmetric. Pupils are equal and reactive. Extraocular movements are intact. NECK: Supple. No JVD. No thyromegaly. No submental, submandibular, pre- /postauricular, occipital or supraclavicular lymphadenopathy. CHEST: Normal chest expansion. No Telemetry. LUNGS: Absence of any rales, rhonchi or any wheezing. CARDIOVASCULAR: Regular. S1 and S2 normal. No appreciable rubs, murmurs or gallops. ABDOMEN: Soft, nontender, and nondistended. There is no rebound, voluntary guarding, or rigidity. : Deferred. No Jacobson. EXTREMITIES: Non-edematous and not cyanotic. No clubbing. Good capillary refill. SKIN: No skin breakdown. Vital Signs (last 8hr) Date Time Temp Pulse Resp B/P (MAP) Pulse Ox O2 Delivery O2 Flow Rate FiO2 12/02/24 11:11 97.5 79 16 146/85 97 Room Air 12/02/24 08:52 97 Room Air* 0 21 12/02/24 08:34 97.9 74 16 150/85 96 Room Air LABS: Laboratory: Test 12/02/24 04:59 12/01/24 08:45 12/01/24 04:51 11/30/24 17:56 Range/Units White Blood Count 8.7 4.8-10.8 K/uL Red Blood Count 4.52 4.50-6.20 MIL/uL Hemoglobin 14.1 14.0-18.0 g/dL Hematocrit 41.9 L 42-54 % Mean Corpuscular Volume 92.7 79-99 fL Mean Corpuscular Hemoglobin 31.2 27.0-33.0 pg Mean Corpuscular Hemoglobin Concent 33.7 32.0-36.0 g/dL Red Cell Distribution Width 13.6 11.0-15.5 % Platelet Count 212 130-400 K/uL Mean Platelet Volume 11.3 H 7.5-10.5 fL Immature Granulocyte % (Auto) 0.2 0-1 % Neutrophils (%) (Auto) 72.9 40.0-77.0 % Lymphocytes (%) (Auto) 15.5 L 21.0-51.0 % Monocytes (%) (Auto) 6.5 3.0-13.0 % Eosinophils (%) (Auto) 4.6 0.0-8.0 % Basophils (%) (Auto) 0.3 0.0-5.0 % Neutrophils # (Auto) 6.3 1.8-7.7 K/uL Lymphocytes # (Auto) 1.4 1.0-4.8 K/uL Monocytes # (Auto) 0.6 0.1-1.0 K/uL Eosinophils # (Auto) 0.40 0.00-0.70 K/uL Basophils # (Auto) 0.03 0.00-0.20 K/uL Absolute Immature Granulocyte (auto 0.02 0-1 K/uL Nucleated Red Blood Cells 0.0 0.0-0.19 % Sodium Level 138 136-145 mmol/L Potassium Level 3.9 3.5-5.1 mmol/L Chloride Level 104 101-111 mmol/L Carbon Dioxide Level 23 21-32 mmol/L Blood Urea Nitrogen 16 7-18 mg/dL Creatinine 1.3 0.5-1.3 mg/dL Glomerular Filtration Rate Calc 57 >90 mL/min Random Glucose 97 70-105 mg/dL Total Calcium 8.4 L 8.5-10.1 mg/dL Magnesium Level 2.00 1.80-2.40 mg/dL Total Bilirubin 0.4 0.2-1.0 mg/dL Aspartate Amino Transf (AST/SGOT) 17 10-37 U/L Alanine Aminotransferase (ALT/SGPT) 25 12-78 U/L Alkaline Phosphatase 98 50-136 U/L Total Protein 6.3 6.0-8.3 g/dL Albumin 3.1 L 3.5-5.0 g/dL Influenza Type A Antigen Negative For Type A NEGATIVE Influenza Type B Antigen Negative For Type B NEGATIVE SARS-CoV-2 Antigen (Rapid) PRESUMPTIVE NEGATIVE NEGATIVE Phosphorus Level 2.1 L 2.5-4.9 mg/dL Urine Color LIGHT-YELLOW YELLOW Urine Appearance CLEAR CLEAR Urine pH 5.5 5.0-8.0 Urine Specific [place] 1.023 1.001-1.031 Urine Protein NEGATIVE NEGATIVE mg/dL Urine Glucose (UA) NEGATIVE NEGATIVE mg/dL Urine Ketones NEGATIVE NEGATIVE mg/dL Urine Occult Blood +- (TRACE) H NEGATIVE Urine Nitrate NEGATIVE NEGATIVE Urine Bilirubin NEGATIVE NEGATIVE mg/dL Urine Urobilinogen 0.2 0.2-1.0 mg/dL Urine Leukocyte Esterase NEGATIVE NEGATIVE [place]/uL Urine RBC 2-5 H 0-1 /HPF Urine WBC 0-1 0-1 /HPF Urine Squamous Epithelial Cells RARE 0-2 /HPF Urine Bacteria None None Seen /HPF Urine Random Creatinine 138.09 H 30-135 mg/dL Urine Random Sodium 195 40-220 mmol/l Test 11/30/24 16:22 Range/Units Troponin I High Sensitivity 6 4-75 ng/L Lipase 31 16-77 U/L Current Medications Medications (Trade) Dose Ordered Sig/[place] Route PRN Reason Start Time Stop Time Status Last Admin Dose Admin Acetaminophen (TYLenol 325MG TAB) 650 mg Q6H PRN PO TEMPERATURE GREATER THAN 101.5 11/30/24 19:00 12/30/24 18:59 Heparin Sodium (Porcine) (HEParin 5,000 UNIT VIAL) 5,000 unit BID SQ 11/30/24 21:00 12/30/24 20:59 12/02/24 08:52 5,000 UNIT Hydralazine HCl (APRESOLine 20MG INJ) 10 mg Q6H PRN IV For:SBP above 160;DBP above 90 11/30/24 19:00 12/30/24 18:59 12/01/24 20:47 10 MG Lactated Ringer's 1,000 ml @ 75 mls/hr [id number] IV 11/30/24 19:00 12/30/24 18:59 12/01/24 11:34 75 MLS/HR Magnesium Sulfate 50 ml @ 0 mls/hr PROTOCOL IV 12/01/24 07:00 12/31/24 06:59 12/01/24 07:20 25 MLS/HR Morphine Sulfate (morPHINE 2MG SYG) 2 mg Q4H PRN IVP SEVERE PAIN (7-10) 12/01/24 07:00 12/07/24 18:59 Morphine Sulfate (morPHINE 4MG SYG) 2 mg Q4H PRN IVP SEVERE PAIN (7-10) 11/30/24 19:00 12/01/24 06:48 DC Ondansetron HCl (zoFRAN 4MG INJ) 4 mg Q6H PRN IV NAUSEA/VOMITING 11/30/24 19:00 12/30/24 18:59 12/01/24 07:19 4 MG Pantoprazole Sodium (PROTonix 40MG TAB) 40 mg ACBKFST PO 12/01/24 07:30 12/31/24 07:29 12/02/24 08:43 40 MG Sodium Chloride 1,000 ml @ 0 mls/hr ONCE IV 11/30/24 16:30 11/30/24 20:30 DC 11/30/24 16:10 1,000 MLS/HR DIAGNOSTICS / RADIOLOGY: [ ] ASSESSMENT: [ Acute kidney injury, POA Severe abdominal pain POA Severe diarrhea POA Anxiety Depression Hypertension History of CVA ] PLAN: [ Continue in medical floor as inpatient status. Continue telemetry monitoring. CT abdomen/pelvis no acute findings. Stool PCR negative. Acute kidney injury: LR at 75 ml/hr Check urine sodium, creatinine, osmolality Avoid nephrotoxic agents when possible Renally dose all medications when possible Consider consulting Nephrology service if any worsening renal function or evidence of ATN. Monitor patient's labs. Weight patient daily. Monitor intake and output. Hypertension, depression, anxiety: Consider resuming home medications once they have been reconciled. At time of admission home medications have been reconciled. For now: Hydralazine 10 mg IV every 4 hours for systolic blood pressure greater than 160 mmHg GI prophylaxis, famotidine DVT prophylaxis, heparin] KHUSHI ANDREW MD Dec 02, 2024 12:59
--- NOTE | 2024-12-02 13:32 | DS ---
Discharge Summary Hospital Course Summary: The patient is a 74-year-old male, brought to the emergency room at [facility] on November 30, 2024 with the chief complaint of diarrhea. While in the emergency department, CBC was done, unremarkable, urinalysis was unremarkable, patient noted to be dehydrated, with a BUN of 24, creatinine 1.4. Decision made to admit the patient for observation, for IV fluids, close monitoring of the patient's renal function. HOSPITAL COURSE 11/30 Mr. Silva is a 74-year-old male that was seen and examined today on 11/30/2024. Patient is a good historian of personal health Patient reports that he came to the emergency department with a chief complaint of diarrhea. Onset was today. Location is rectal. Duration is on and off. Character is described as watery. There was no alleviating factors. Symptoms are aggravated by defecation. Patient reports associated weakness. Today in the emergency department CBC unremarkable, urinalysis unremarkable, creatinine 1.4, BUN 24. Emergency room physician recommended patient be admitted with a diagnosis of acute kidney injury. 12/01 patient was seen by nurse practitioner and physician during rounding in room 410. Patient's creatinine has improved today is 1.2 BUN 21 GFR 63. Magnesium 1.5 we will be replaced per protocol. Patient was complaining of diarrhea on previous day stool PCR was ordered. Continue LR at 75 mL/hour. Pantoprazole and heparin subQ. We will continue to monitor patient in the meantime. A.m. labs. Anticipated discharge within 24 hours.] 12/02 patient remains admitted to the medical floor, blood pressure 146/85, afebrile, saturating normal on room air, hemoglobin stable 14.1, hematocrit 41.9. Renal function back to normal to 1.3. Results of stool cultures negative. Patient on IV fluids. Today the patient is hemodynamically stable, case discussed with the RN, no acute events overnight, no diarrhea, tolerating diet, denies nausea, no vomiting, no abdominal pain. Plan for the patient to be discharged back to long term facility, discussed with case management. Assessment/Plan: Final diagnosis Acute diarrhea, POA Acute kidney injury, POA Severe abdominal pain POA Severe diarrhea POA Anxiety Depression Hypertension History of CVA Discharge Instructions: Patient to be discharged back to long term facility for continuation of medical care, return to hospital if condition changes. Agreed and understood the information provided. Time spent arranging discharge: 31-60 minutes KHUSHI ANDREW MD Dec 02, 2024 13:32
--- NOTE | 2024-12-02 16:17 | NUR ---
Pt wants to DC home to [facility] however was a 2 person total assist for bed mobility and transfer. Not able to walk. May need rehab if patient not able to get that level of care at [facility]
[2024-12-02] MEDS ORDERED: CARV3.12 PO (20:37)
[2024-12-02] MEDS ORDERED: PANT40TA54 PO (20:37)
[2024-12-02] MEDS ORDERED: TAMSULOSIN (20:37)
[2024-12-02] MEDS ORDERED: LOSA25TA41 PO (20:37)
[2024-12-02] MEDS ORDERED: PROP10DR2 OP (20:37)
[2024-12-02] MEDS ORDERED: CLOP75TA32 PO (20:37)
[2024-12-02] MEDS ORDERED: ATOR-2 PO (20:37)
[2024-12-02] MEDS ORDERED: SERT-439 PO (20:37)
[2024-12-02] MEDS ORDERED: BUSP5TAB3 PO (20:37)
[2024-12-02] MEDS ORDERED: CHOL-34 PO (20:37)
[2024-12-02] MEDS ORDERED: BACL10TA PO (20:37)
[2024-12-02] MEDS ORDERED: ONDA-245 PO (20:42)
[2024-12-02] MEDS ORDERED: MAGN400T53 PO (20:42)
[2024-12-02] MEDS ORDERED: ARIP5TAB51 PO (20:42)
[2024-12-02] MEDS ORDERED: LOPE-198 PO (20:42)
[2024-12-03 00:29] VITALS: BP 186/99; PULSE 67; RESP 18; TEMP 98.4
[2024-12-03 04:29] VITALS: BP 163/98; PULSE 86; RESP 18; TEMP 98.5
[2024-12-03 04:46] LABS: IMMATURE GRANULOCYTE ABSOLUTE 0.04 K/uL (0-1); NUCLEATED RED BLOOD CELLS 0.0 % (0.0-0.19); PLATELET COUNT (AUTO) 191 K/uL (130-400); RED BLOOD CELL COUNT(AUTO) 4.42 MIL/uL (4.50-6.20); RED CELL DISTRIBUTION WIDTH 13.6 % (11.0-15.5); WHITE BLOOD COUNT (AUTO) 9.9 K/uL (4.8-10.8)
[2024-12-03 05:09] LABS: ASPARTATE AMINOTRANSFERASE 17.0 U/L (10-37); CREATININE 1.2 mg/dL (0.5-1.3); GLOMERULAR FILTR. RATE CALC 63.0 mL/min (>90); GLUCOSE,RANDOM 94.0 mg/dL (70-105); SODIUM SERUM 139.0 mmol/L (136-145); TOTAL PROTEIN, SERUM 6.3 g/dL (6.0-8.3); UREA NITROGEN, BLOOD 18.0 mg/dL (7-18)
[2024-12-03 08:10] VITALS: BP 143/92; PULSE 88; RESP 18; TEMP 97.9
[2024-12-03 11:19] VITALS: BP 163/91; PULSE 89; RESP 16; TEMP 97.6
== END 2024-12-03 18:33 | DRG 683 ==
LOC: EDH 15:41 → EDHIP 18:58 → 4BH 22:10
PROVIDERS: ADMIT Internal Medicine; ATTEND Internal Medicine
DX: N17.9 Acute kidney failure, unspecified (principal); E44.1 Mild protein-calorie malnutrition; E86.0 Dehydration; K59.00 Constipation, unspecified; F41.9 Anxiety disorder, unspecified; N40.0 Benign prostatic hyperplasia without lower urinary tract symptoms; Z20.822 Contact with and (suspected) exposure to COVID-19; F32.A Depression, unspecified; I10 Essential (primary) hypertension; Z86.73 Personal history of transient ischemic attack (TIA), and cerebral infarction without residual deficits; Z68.27 Body mass index [BMI] 27.0-27.9, adult; Z79.899 Other long term (current) drug therapy
CPT/HCPCS: 36415; 74176; 80048; 80053; 81001; 82570; 83690; 83735; 83935; 84100; 84300; 84484; 85025; 87046; 87426; 87804; 93005; 99285; G0378; J0360; J1644; J2405; J3475